=== PATIENT | male | born 1970 | race Caucasian/White ===

== ENCOUNTER 2018-12-22 08:46 | Day surgery (SDC) | payer OTHER ==
[2018-12-22] MEDS ORDERED: Propofol 200 MG/20 ML SDV IV ONE (08:47)
[2018-12-22] MEDS ORDERED: Lactated Ringers 1,000 ML IV ONE (08:47)
[2018-12-22] MEDS ORDERED: Midazolam 1 MG/ML 2 ML SDV IV ONE (08:47)
[2018-12-22] MEDS ORDERED: Sodium Chloride 0.9% 10 ML Syringe FLUSH PRN (09:00)
[2018-12-22] MEDS ORDERED: Lactated Ringers 1,000 ML IV SCH (09:00)
--- NOTE | 2018-12-22 10:43 | PCM.PN ---
- General Info Date of Service: 12/22/18 - Review of Systems General: Reports: Other (Bowels working well, no rectal bleeding) Systems Review Comment:: Patient had colitis on prior colonoscopy 3 years ago and is here for follow up. No recent change in bowel function. No abdominal pain, appetite good. - Patient Data Vitals - Most Recent: Last Vital Signs Temp 97.9 F 12/22/18 09:17 Pulse 75 12/22/18 09:17 Resp 16 12/22/18 09:17 BP 145/95 H 12/22/18 09:17 Pulse Ox 98 12/22/18 09:17 Weight - Most Recent: 172 lb 6.4 oz Med Orders - Current: Current Medications Lactated Ringer's (Ringers, Lactated) 1,000 mls @ 125 mls/hr IV ASDIRECTED RAFI Last Admin: 12/22/18 09:26 Dose: 125 mls/hr Sodium Chloride (Saline Flush) 10 ml FLUSH ASDIRECTED PRN PRN Reason: Keep Vein Open - Exam General: Alert, Oriented Lungs: Clear to Auscultation, Normal Respiratory Effort Cardiovascular: Regular Rate, Regular Rhythm GI/Abdominal Exam: Soft, Non-Tender - Problem List Review Problem List Initiated/Reviewed/Updated: Yes - My Orders Last 24 Hours: My Active Orders 12/21/18 Dinner Nothing Per Oral Diet [DIET] 12/22/18 09:00 Patient Status [ADT] Routine Patient to Empty Bladder [RC] ASDIRECTED Verify Patient Consent Obtain [RC] ASDIRECTED Lactated Ringers [Ringers, Lactated] 1,000 ml IV ASDIRECTED Sodium Chloride 0.9% [Saline Flush] 10 ml FLUSH ASDIRECTED PRN Peripheral IV Insertion Adult [OM.PC] Routine - Assessment Assessment:: History of colitis - Plan Plan:: Colonoscopy. I have discussed the colonoscopy with the patient. He agrees to proceed accepting risks.
--- NOTE | 2018-12-22 11:18 | PCM.OPNOTE ---
- General Post-Op/Procedure Note Date of Surgery/Procedure: 12/22/18 Operative Procedure(s): Colonoscopy Findings: Normal appearing colon and terminal ileum Pre Op Diagnosis: History of colitis Post-Op Diagnosis: Normal colon Anesthesia Technique: MAC Primary Surgeon: Mayo Menon Pathology: none EBL in mLs: 0 Complications: None Condition: Good
[2018-12-22 11:55] VITALS: BP 148/91; PULSE 56
--- NOTE | 2018-12-22 16:36 | OR ---
DATE OF OPERATION: 12/22/2018 SURGEON: Mayo Menon MD PREOPERATIVE DIAGNOSIS: History of colitis. POSTOPERATIVE DIAGNOSIS: Normal colon. OPERATION PERFORMED: Colonoscopy. INDICATIONS FOR SURGERY: This 48-year-old male is seen today for colonoscopy in followup of colitis which was identified during a colonoscopy 3 years ago. He currently denies any symptoms. FINDINGS: The patient's colon appears normal. No visible signs of inflammation are seen. No polyps or other lesions are noted. His terminal ileum also appears normal. PROCEDURE IN DETAIL: The patient was taken to the procedure room. He was given intravenous sedation, and with him in the left lateral decubitus position, digital rectal exam was performed showing no rectal masses. The Olympus colonoscope was inserted into the rectum, retroflexed examination of the rectal canal was performed. The scope was then carefully advanced under direct visualization through the entire length of the colon until the cecum was reached. Cecal acquisition was confirmed by noting normal internal cecal anatomy including the appendiceal orifice and ileocecal valve. The light was also noted to transilluminate the abdominal wall in the right lower quadrant. The ileocecal valve was cannulated and the terminal ileum was examined and also appeared normal. The scope was then slowly withdrawn, sequentially re-examining the colonic segments until the entire colon and rectum had been fully examined. The scope was removed and the patient was taken from the procedure room in satisfactory condition. ESTIMATED BLOOD LOSS: 0. COMPLICATIONS: None. PROGNOSIS: Good. /[id number] [address]
== END 2018-12-22 12:03 | disposition home or self-care (01) ==
LOC: FB.SDS 08:46
PROVIDERS: ATTEND Surgery
DX: Z12.11 Encounter for screening for malignant neoplasm of colon (principal); J45.909 Unspecified asthma, uncomplicated; Z87.19 Personal history of other diseases of the digestive system; Z79.52 Long term (current) use of systemic steroids; Z79.51 Long term (current) use of inhaled steroids; Z87.891 Personal history of nicotine dependence
CPT/HCPCS: J2250; J2704; J7120

== ENCOUNTER 2022-10-05 20:16 | Emergency (ER) | payer BC, OTHER ==
[2022-10-05] MEDS ORDERED: Diphtheria/Tetanus Toxoids,Adult (Td) 0.5 ML SDV IM ONE (20:48)
[2022-10-05 21:19] VITALS: BP 154/81; PULSE 71
== END 2022-10-05 21:17 | disposition home or self-care (01) ==
LOC: FB.ED 20:16
DX: S60.452A Superficial foreign body of right middle finger, initial encounter (principal); Z23 Encounter for immunization; W45.8XXA Other foreign body or object entering through skin, initial encounter
CPT/HCPCS: 90471; 90714; 99283-25